=== PATIENT | male | born 1935 | race Caucasian/White ===

== ENCOUNTER → 2019-07-24 | Outpatient (CLI) | payer OTHER ==
[~2019-07-24] MED LIST: ASA81BEC PO; ASPIRIN325 PO; COZAAR 25 MG TA25 M1 PO; EFFIENT10 MG PO; FISH OIL 1,001000 M2 PO; NITROGLYCERIN0.4 MG SL; PACERONE 200 M200 M1 PO; PRAVACHOL40 MG PO; PRAVASTATIN SOD80 MG PO; TOPROL XL25 MG PO; VIAGRA50 MG PO
== END | disposition home or self-care (01) ==
LOC: SJCVCIMAG 08:44
DX: I65.23 Occlusion and stenosis of bilateral carotid arteries (principal); I25.10 Atherosclerotic heart disease of native coronary artery without angina pectoris; E78.00 Pure hypercholesterolemia, unspecified; I10 Essential (primary) hypertension; I25.5 Ischemic cardiomyopathy

== ENCOUNTER → 2020-08-21 | Outpatient (CLI) | payer OTHER | LOC: SJCVCIMAG 07:49 | PROVIDERS: ATTEND Internal Medicine Cardiovascular Disease | DX: R94.31 Abnormal electrocardiogram [ECG] [EKG] (principal); I25.10 Atherosclerotic heart disease of native coronary artery without angina pectoris; I10 Essential (primary) hypertension; I65.23 Occlusion and stenosis of bilateral carotid arteries; I73.9 Peripheral vascular disease, unspecified; E78.00 Pure hypercholesterolemia, unspecified; J44.9 Chronic obstructive pulmonary disease, unspecified; I25.5 Ischemic cardiomyopathy; Z79.82 Long term (current) use of aspirin; Z72.89 Other problems related to lifestyle; Z87.891 Personal history of nicotine dependence; Z88.1 Allergy status to other antibiotic agents ==

== ENCOUNTER → 2020-08-31 | Outpatient (CLI) | payer OTHER ==
[~2020-08-31] VITALS: Ht 170.2 cm; Wt 83.9 kg
[~2020-08-31] MED LIST changes: +PLAVIX 75 MG TA75 MG PO
[2020-08-31 08:07] VITALS: BP 138/76
--- NOTE | 2020-08-31 14:39 | NUR ---
LAB HERE TO DRAW ORDERED LABS. MRSA SWAB SENT TO LAB.
[2020-08-31 14:44] LABS: HEMATOCRIT 41.4 % (42.0-52.0); HEMOGLOBIN 13.8 gm/dL (14.0-18.0); MCH 31.4 pg (26.0-34.0); MCHC 33.3 g/dL (28.0-37.0); MCV 94.2 fL (80.0-100.0); RBC 4.4 mil/uL (4.50-6.00); RDW 13.2 % (10.5-14.5); WBC 8.2 thou/uL (4.0-11.0)
[2020-08-31 15:00] LABS: ALBUMIN 3.6 g/dL (3.4-5.0); CALCIUM 8.7 mg/dL (8.5-10.1); CREATININE 1.4 mg/dL (0.7-1.3); POTASSIUM 4.3 mmol/L (3.5-5.1); TOTAL BILIRUBIN 0.6 mg/dL (0.2-1.0); TOTAL PROTEIN 7.4 g/dL (6.4-8.2)
[2020-08-31 15:03] LABS: APTT 40.3 Seconds (24.5-32.8); INR 1.1; PROTIME 11.7 Seconds (9.3-11.4)
[2020-08-31 18:07] LABS: URINE BILIRUBIN NEGATIVE (Negative); URINE BLOOD 2+ (Negative); URINE CLARITY CLEAR; URINE COLOR YELLOW; URINE GLUCOSE-RANDOM* NEGATIVE (Negative); URINE KETONES NEGATIVE (Negative); URINE LEUKOCYTES-REFLEX NEGATIVE (Negative); URINE NITRITE-REFLEX NEGATIVE (Negative); URINE PROTEIN (DIPSTICK) NEGATIVE (Negative); URINE UROBILINOGEN 0.2 E.U./dl (0.2-1.0)
[2020-08-31 18:18] LABS: SQUAMOUS None Seen /LPF (0-3); URINE WBC-REFLEX None Seen /HPF (0-5)
[2020-08-31 18:19] LABS: BACTERIA-REFLEX 1-9 Few /HPF (None Seen); CASTS None Seen /LPF (None Seen); CRYSTALS None Seen /LPF (None Seen)
--- NOTE | 2020-09-01 17:41 | CATHLAB ---
[facility] [place] [address] INVASIVE PROCEDURE REPORT Name: IMELDA OSMAN Room #: REG SERGEI Shaw.#: [id number] Admission: 08/31/20 Attend Phys: Diony Maitas MD Discharge: Date of : 39 Report #: [id number] THIS REPORT FOR: cc: Puneet Wilkes MD, Rene P. MD Mancuso, Gerald M. MD [facility] ~ APPROVED REPORT Study performed: 08/31/2020 12:48:16 Patient Details Patient Status: Out-Patient Room #: The patient is a 84 year-old male Event Personnel Pacheco Hastings Instrument Repairer Helper, Estrellita Rosas RN RN, Costa Kidd RTR ScrubNando Nancy RTR, BRUSHING MACHINE OPERATOR Monitor Procedures Performed Art Access - R femoral artery* Left Heart Cath w/or w/o Coronaries [id number] [facility] Hemostasis w/ Mynx Indication Positive stress test Procedure Narrative The right groin was infiltrated with 1% Lidocaine subcutaneous anesthesia. A SHEATH BRITE-TIP 6F X 11CM ([id number]) sheath was inserted into the RFA^. Coronary angiography was performed using coronary diagnostic catheters. The right coronary system was accessed and visualized with a JR4 catheter. The left coronary system was accessed and visualized with a JL4 catheter. The left ventricle was accessed and visualized with a PIGTAIL catheter. Left ventricular/Aortic Valve gradient assessed via catheter pullback. Left ventriculogram was performed in 30 degree projection. Closure device was deployed with a 6 Fr MYNXGRIP 6/7F #[id number]. The patient tolerated the procedure well and there were no complications associated with the procedure. There was no hematoma. Intraoperative Conscious Sedation Sedation start time: 11:08 Case end Time: 13:36 Fentanyl 200 mcg Versed 2 mg [facility] [place] [address] INVASIVE PROCEDURE REPORT Name: IMELDA OSMAN Farhana Room #: [facility]#: [id number] Admission: 08/31/20 Attend Phys: Diony Matias, Discharge: Date of : 37 Report #: [id number] Conscious sedation is a combined total for peripheral procedure and left heart cath. Fluoro time and dose are a combined total for peripheral procedure and left heart cath. Visipaque was used for left heart cath (total of 100ml). Omnipaque was used for peripheral procedure and left ventriculogram ( total of 168ml). Fluoro Time: 16.20 minutes Dose: DAP 90319.79 cGycm2 5053 mGy Contrast Type and Amount: Omnipaque 168 ml Hemodynamics The aortic pressure is 171/71 mmHg with a mean of 110 mmHg. The left ventricular pressure is 170/13 mmHg with a mean of mmHg. The left ventricular end diastolic pressure is 22 mmHg. PCI Technique Lesion Percutaneous coronary intervention was performed on the Superior Mesentaric. Conclusion #1. Left main with distal tapered narrowing of 60% focal at the takeoff of the LAD circumflex. Will follow closely #2 LAD is moderately disease calcified eccentric proximal lesion of 60 to 70% at the takeoff of the diagonal. This extends to the apex diffusely diseased. #3 circumflex OM looks to be predominantly dominant vessel. Mild proximal calcification large mildly diseased. #4 there is a second OM branch which is relatively small off of the large dominant circumflex which is subtotaled small in caliber would treat this medically. #5 nondominant right coronary with high-grade disease no evidence of any LV filling. Recommendations and plan: Continue aggressive risk factor modification. Some progression of left main disease and proximal mid LAD. Currently treat this medically. May be difficult to evaluate with nuclear stress testing due to dominant circumflex artery Left main may be amenable to stent procedure will have CV surgeon evaluate cath films and further discussion to follow. <ELECTRONICALLY SIGNED> By: Pacheco Hastings MD, FACC 09/01/201739 39 39 Pacheco Hastings MD, FACC /INF
== END | disposition home or self-care (01) ==
LOC: CATH 07:41
PROVIDERS: Surgery Vascular Surgery; ATTEND Nuclear Medicine Nuclear Cardiology
DX: R94.39 Abnormal result of other cardiovascular function study (principal); I25.10 Atherosclerotic heart disease of native coronary artery without angina pectoris; K55.1 Chronic vascular disorders of intestine; I65.22 Occlusion and stenosis of left carotid artery; I73.9 Peripheral vascular disease, unspecified; I70.1 Atherosclerosis of renal artery; I10 Essential (primary) hypertension; E78.5 Hyperlipidemia, unspecified; I25.2 Old myocardial infarction; G62.9 Polyneuropathy, unspecified; Z98.890 Other specified postprocedural states; Z79.899 Other long term (current) drug therapy; Z87.891 Personal history of nicotine dependence; Z88.8 Allergy status to other drugs, medicaments and biological substances

== ENCOUNTER → 2020-09-30 | Outpatient (CLI) | payer OTHER ==
[~2020-09-30] MED LIST changes: +COZAAR100 MG PO
== END ==
LOC: LAB 10:02
PROVIDERS: ATTEND Surgery Vascular Surgery
DX: Z01.812 Encounter for preprocedural laboratory examination (principal); Z20.822 Contact with and (suspected) exposure to COVID-19

== ENCOUNTER 2020-10-06 06:00 | Inpatient (IN) | payer OTHER ==
[2020-09-30 09:18] LABS: URINE BILIRUBIN NEGATIVE (Negative); URINE BLOOD NEGATIVE (Negative); URINE CLARITY CLEAR; URINE COLOR YELLOW; URINE GLUCOSE-RANDOM* NEGATIVE (Negative); URINE KETONES NEGATIVE (Negative); URINE LEUKOCYTES-REFLEX NEGATIVE (Negative); URINE NITRITE-REFLEX NEGATIVE (Negative); URINE PROTEIN (DIPSTICK) NEGATIVE (Negative); URINE SPECIFIC GRAVITY 1.015 (1.005-1.035); URINE UROBILINOGEN 0.2 E.U./dl (0.2-1.0)
[2020-09-30 09:21] LABS: HEMATOCRIT 42.6 % (42.0-52.0); HEMOGLOBIN 14.3 gm/dL (14.0-18.0); MCH 31.3 pg (26.0-34.0); MCHC 33.5 g/dL (28.0-37.0); MCV 93.5 fL (80.0-100.0); RBC 4.55 mil/uL (4.50-6.00); RDW 13.1 % (10.5-14.5); WBC 9.3 thou/uL (4.0-11.0)
--- NOTE | 2020-09-30 09:32 | EKG ---
[place] [address] [place] [address] ELECTROCARDIOGRAM REPORT Name: IMELDA OSMAN Room #: [facility] IN [facility]#: [id number] Admission: Attend Phys: Gelacio Vick MD Discharge: Date of : 37 Report #: [id number] [facility] Test Date: 2020-09-30 Test Time: 09:10:43 Pat Name: IMELDA OSMAN Department: Room: Gender: M Physical Therapy Aide: SÁNCHEZ : 1935 Requested By: Gelacio Vick Order Number: [id number] MD: Sebastián Lopez Measurements Intervals [place]ba Rate: 50 P: TX: QRS: -65 QRSD: 113 T: 6 QT: 462 QTc: 422 Interpretive Statements Sinus bradycardia Borderline IVCD with LAD Inferior infarct, old Baseline wander in lead(s) V2 Compared to ECG 10/24/2013 08:05:10 Left anterior fascicular block no longer present Myocardial infarct finding still present Electronically Signed On 09-30-2020 9:32:14 CDT by Sebastián Lopez [email or web address] <ELECTRONICALLY SIGNED> By: Sebastián Lopez MD, [facility] 09/30/20 0932 9 Sebastián Lopez MD, [facility] /EPI
[2020-09-30 09:38] LABS: APTT 26.2 Seconds (24.5-32.8); INR 1.03; PROTIME 11.2 Seconds (9.3-11.4)
[2020-09-30 09:43] LABS: CREATININE 1.4 mg/dL (0.7-1.3); POTASSIUM 4.9 mmol/L (3.5-5.1); TOTAL BILIRUBIN 0.6 mg/dL (0.2-1.0); TOTAL PROTEIN 7.6 g/dL (6.4-8.2)
[2020-10-06] VITALS (7 sets, daily range): BP systolic 97–166; BP diastolic 46–74
[~2020-10-06] VITALS: Ht 172.7 cm; Wt 97.5 kg
--- NOTE | 2020-10-06 16:18 | NUR ---
1245-RECEIVED PT FROM VIA BED. LOW DOSE CARDENE INFUSING.PT SLEEPY BUT NEURO GROSSLY INTACT.--VW 1300- AT BEDSIDE-UPDATED ON POC.--VW 1345- LEFT OR FEW HOURS,PT WANTS TO SLEEP. LIGHT WEIGHT ICEPACK TO LT NECK.-VW 1615- BACK AT BEDSIDE.OUT TO STATE THAT DRESSING IS SATURATED W BLOOD. DRSG TO LT NECK W/O SIG INCREASE. EXPLAINED TO . & EKTA IN SHORTLY THEREp AND NOT CONCERNED W AMT OF BLOOD. NECK REMIANS SOFT,NO SWELLING OR HEMATOMA. FENTANYL EARLIER FOR NECK & THROAT PAIN W GOOD RELIEF.--VW
[2020-10-07] VITALS (10 sets, daily range): BP systolic 115–141; BP diastolic 47–62
--- NOTE | 2020-10-07 00:42 | NUR ---
Urine outpu remains marginal; pt c/o of mouth being dry and po intake encourage. Nicardipine gtt remains at 2.5 mg/hr to keep BP within ordered parameters. Site for Nicardipine changed from Left arm to right hand per infusion protocol.
[2020-10-07 05:24] LABS: MCH 31.5 pg (26.0-34.0); MCHC 33.4 g/dL (28.0-37.0); MCV 94.2 fL (80.0-100.0); RBC 4.14 mil/uL (4.50-6.00); RDW 13.3 % (10.5-14.5)
[2020-10-07 05:45] LABS: CALCIUM 8.4 mg/dL (8.5-10.1); CREATININE 1.3 mg/dL (0.7-1.3); POTASSIUM 4.9 mmol/L (3.5-5.1)
[2020-10-07 06:17] LABS: CHOLESTEROL 104 mg/dL (<200); HDL CHOLESTEROL 40 mg/dL (>40); LDL CHOLESTEROL 50 mg/dL (<100); TC:HDL 2.6 Ratio (Not establshd); TRIGLYCERIDE 72 mg/dL (<150); VLDL 14 mg/dL (<40)
[2020-10-07 06:22] LABS: SERUM ASSESSMENT Clear
--- NOTE | 2020-10-07 08:16 | O ---
[facility] [place] [address] OPERATIVE REPORT Name: IMELDA OSMAN Room #: 251-P [facility] IN M.R.#: [id number] Admission: 10/06/20 Attend Phys: Gelacio Vick MD Discharge: Date of : 39 Report #: [id number] THIS REPORT FOR: cc: Puneet Wilkes MD, Rene P. MD Forman,Gelacio Fagan MD ~ DATE OF SERVICE: 10/06/2020 PREOPERATIVE DIAGNOSIS: Left carotid artery stenosis. POSTOPERATIVE DIAGNOSIS: Left carotid artery stenosis. OPERATION: Left carotid endarterectomy with patch closure. SURGEON: Gelacio Vick MD WATER TREATMENT SPECIALIST: JYOTI Sanchez. ANESTHESIA: General. INDICATIONS: The patient is an 84-year-old with a large exophytic plaque that creates 90% stenosis in the left carotid bulb. The patient has been asymptomatic, but the lesion is severe. The contralateral carotid has trivial disease. FINDINGS AND TECHNIQUE: After general anesthesia was established, exposure was obtained through an oblique left neck incision. Common facial vein was divided. Common internal and external carotid arteries were identified and controlled, 10,000 units of heparin were given. Continuous electroencephalographic monitoring was performed during the operation when the carotid vessels were occluded, no EEG changes were noted. The carotid arteriotomy was made. The endarterectomy was performed without creating a distal flap. Neointima was inspected and all loose debris was removed. Tacking sutures were placed at the transition zone. When the endarterectomy was deemed satisfactory, the arteriotomy was closed with thin-walled pericardial patch and running Prolene. Prior to finishing the closure, the carotid vessels were backbled and the artery was irrigated with heparinized saline. Flow was established first through the external, then the internal carotid artery. Protamine was given to reverse the heparin. When hemostasis was satisfactory, a drain was placed through the bottom pole of the incision and the wound was [facility] [address] [place] [address] OPERATIVE REPORT Name: IMELDA OSMAN Room #: 251-P [facility] IN .R.#: [id number] Admission: 10/06/20 Attend Phys: Gelacio Vick MD Discharge: Date of : 39 Report #: [id number] closed in layers. The patient was taken to the recovery area in good condition where his neurologic progress was monitored. All counts reported as correct. <ELECTRONICALLY SIGNED> By: Gelacio Vick MD 10/07/20 0816 1101 1135 Gelacio Vick MD /nt
--- NOTE | 2020-10-07 11:23 | NUR ---
chart review. cm visited with pt and spouse at bedside. cm cont to wear face mask and shield during visit, intro to cm and dcp. he reported independent at home, still moves 3 arcs via rider mower. has cane when walk to mail box. dr lay and cardiology is dr villareal. no rehab or hh in past. will cont following as needed for dc needs.
--- NOTE | 2020-10-07 14:33 | NUR ---
TRANSFER TO ROOM 209 VIA ON ROOM AIR ON MONITOR. ALL BELONGINS WITH PT, EXCEPT MED BOTTLE IN RX.
--- NOTE | 2020-10-07 16:09 | NUR ---
PT SITTING UP ON SIDE OF BED WITH AT BEDSIDE. PT ASSESSMENT PERFORMED CHARTED. PT URINATED 100ML FOR THE FIRST TIME SINCE LR DISCONTINUED. VSS. WILL CONTINUE TO MONITOR AND FOLLOW POC.
[2020-10-07 23:06] LABS: GLYCOHEMOGLOBIN (HGB A1C) 5.8 % (4.8-5.6)
[2020-10-08 00:20] VITALS: BP 153/64
[2020-10-08 04:50] VITALS: BP 163/67
--- NOTE | 2020-10-08 06:46 | NUR ---
COMPLAIN OF SORE THROAT.LOZENGE GIVEN X 2.VERBALIZED HE FELT BETTER.DENIES ANY PAIN.LEFT NECK DRESSING DRY AND INTACT WITH DRIED BLOOD.PER REPORT KEEP THE DRESSING AND DON'T CHANGE.MONITOR SHOWS SR.POC CONTINUED.
[2020-10-08 07:14] VITALS: BP 168/79
[2020-10-08 08:43] LABS: HEMATOCRIT 42.5 % (42.0-52.0); HEMOGLOBIN 14.1 gm/dL (14.0-18.0); MCHC 33.1 g/dL (28.0-37.0); MCV 93.5 fL (80.0-100.0); RBC 4.54 mil/uL (4.50-6.00); WBC 17.1 thou/uL (4.0-11.0)
[2020-10-08 08:58] LABS: CALCIUM 9.3 mg/dL (8.5-10.1); CREATININE 1.2 mg/dL (0.7-1.3); POTASSIUM 4.2 mmol/L (3.5-5.1)
[2020-10-08 09:58] VITALS: BP 168/79
[2020-10-08 11:20] VITALS: BP 173/71
--- NOTE | 2020-10-09 17:06 | PATH ---
[facility] [address] [place] [address] PATHOLOGY RPT PROCEDURE Name: JOHN OSMAN Room #: 209-P [facility] IN M.R.#: [id number] Admission: 10/06/20 Date of : 39 Discharge: 10/08/20 Report #: [id number] Path Case #: [id number] [facility] Accession Number: [id number] . 01 Material submitted: . carotid body - LEFT CAROTID PLAQUE. Modifiers: left . 01 Clinical history: . CAROTID ARTERY STENOSIS . 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 (IUV:pit 10/09/2020) QTP 10/09/2020 1620 Local . 02 Electronically signed: . Leatha Osborne MD, Pathologist NPI- [id number] . 01 Gross description: . Received in formalin and labeled "John Osman and left carotid plaque". Received are 3 white-yellow elastic carotid vessel fragments measuring in aggregate 3.5 x 1.0 x 1.0 cm. The wall thickness ranges from 0.1-0.2 cm the lumen ranges from 0.8-1.0 cm. Sectioning reveals white-yellow plaque occluding 80-90% of the lumen measuring 2.0 cm in length. The specimen is representatively submitted in cassette A1. Light decal. (J; 10/08/2020) . . . . . . BLJ/BLJ 10/09/2020 1522 Local . 02 Pathologist provided ICD-10: I65.22 . 02 CPT . 142530 Specimen Comment: A courtesy copy of this report has been sent to [phone], [phone] Specimen Comment: [phone] Specimen Comment: Report sent to / DR LENNON Performed at: [address] [address] PATHOLOGY RPT PROCEDURE Name: JOHN OSMAN Room #: 209-P [facility] IN .R.#: [id number] Admission: 10/06/20 Date of : 39 Discharge: 10/08/20 Report #: [id number] Path Case #: [id number] [address] [id number] MD Estrada Saeed MD Phone: [phone] Performed at: [address] [id number] MD Leatha Osborne MD Phone: [phone]
== END 2020-10-08 12:13 | disposition home or self-care (01) | DRG 37 ==
LOC: 2N 06:00 → TBA 06:00 → PRE 08:33 → ICU 12:45 → PRE 16:11 → 2N 10-07 14:32
PROVIDERS: Internal Medicine; Nurse Practitioner Family; Physician Assistant; ADMIT Surgery Vascular Surgery; ATTEND Surgery Vascular Surgery
DX: I65.22 Occlusion and stenosis of left carotid artery (principal); N17.0 Acute kidney failure with tubular necrosis; E78.5 Hyperlipidemia, unspecified; I10 Essential (primary) hypertension; E78.00 Pure hypercholesterolemia, unspecified; E11.51 Type 2 diabetes mellitus with diabetic peripheral angiopathy without gangrene; I25.10 Atherosclerotic heart disease of native coronary artery without angina pectoris; Z95.5 Presence of coronary angioplasty implant and graft; I25.2 Old myocardial infarction; Z88.8 Allergy status to other drugs, medicaments and biological substances; Z83.3 Family history of diabetes mellitus; Z82.61 Family history of arthritis; Z80.9 Family history of malignant neoplasm, unspecified
CPT/HCPCS: 10078; 10081; 47375; 48888; 50010; 50101; 50386; 50417; 50455; 51301; 52279; 52287; 54118; 56524; 56526; 56528; 56534; 57254; 62110; 62900; 65020; 70005

== ENCOUNTER → 2021-04-16 | Outpatient (CLI) | payer OTHER | LOC: SJCVC 10:29 | PROVIDERS: ATTEND Internal Medicine Cardiovascular Disease | DX: R94.31 Abnormal electrocardiogram [ECG] [EKG] (principal); I45.19 Other right bundle-branch block; I25.10 Atherosclerotic heart disease of native coronary artery without angina pectoris; I10 Essential (primary) hypertension; E78.00 Pure hypercholesterolemia, unspecified; I65.23 Occlusion and stenosis of bilateral carotid arteries; I25.5 Ischemic cardiomyopathy; J44.9 Chronic obstructive pulmonary disease, unspecified; E78.5 Hyperlipidemia, unspecified; G47.00 Insomnia, unspecified; I71.9 Aortic aneurysm of unspecified site, without rupture; I65.29 Occlusion and stenosis of unspecified carotid artery; Z79.82 Long term (current) use of aspirin; Z79.899 Other long term (current) drug therapy; Z87.891 Personal history of nicotine dependence; Z72.89 Other problems related to lifestyle ==